=== PATIENT | male | born 1980 | race Caucasian/White ===

== ENCOUNTER 2024-06-29 21:36 | Emergency (ER) | payer SELFPAY ==
[~2024-06-29] VITALS: Ht 165.1 cm; Wt 77.2 kg
[2024-06-29 21:42] VITALS: BP 125/96; PULSE 119; RESP 18; TEMP 98.6; O2SAT 99
== END 2024-06-30 00:15 | disposition left against medical advice (07) ==
LOC: ER 21:36
DX: F15.10 Other stimulant abuse, uncomplicated (principal)
CPT/HCPCS: 99281